=== PATIENT | female | born 1960 | race American Indian/Alaskan Native ===

== ENCOUNTER 2019-02-02 19:35 | Emergency (ER) | payer MEDICARE, BC ==
--- NOTE | 2019-02-02 19:53 | Emergency Department Report ---
Blank Doc - Documentation Documentation: 58-year-old female that presents with right upper abdominal pain with radiation to right flank. This initial assessment/diagnostic orders/clinical plan/treatment(s) is/are subject to change based on patient's health status, clinical progression and re- assessment by fellow clinical providers in the ED. Further treatment and workup at subsequent clinical providers discretion. Patient/guardians urged not to elope from the ED as their condition may be serious if not clinically assessed and managed. Initial orders include: 1- Patient sent to [facility] for further evaluation and treatment 2- labs 3- UA
[2019-02-02 20:18] LABS: Hematocrit 40.6 % (30.3-42.9); Hemoglobin 13.5 gm/dl (10.1-14.3); Mean Corpuscular HGB Conc 33 % (30-34); Mean Corpuscular Volume 102 fl (79-97); Platelet Count 290 K/mm3 (140-440); Red Blood Count 3.98 M/mm3 (3.65-5.03)
[2019-02-02 20:38] LABS: Bilirubin,Urine NEG (Negative); Blood,Urine SM (Negative); Color,Urine Yellow (Yellow); Mucus,Urine FEW /HPF; Protein,Urine <15 mg/dL mg/dL (Negative); Urobilinogen,Urine < 2.0 mg/dL (<2.0)
[2019-02-02 20:39] LABS: Alanine Aminotransferase 17 units/L (7-56); Albumin 3.6 g/dL (3.9-5); BUN/Creatinine Ratio 15; Blood Urea Nitrogen 15 mg/dL (7-17); Calcium 9.2 mg/dL (8.4-10.2); Hemolysis Index 7
[2019-02-02 21:33] LABS: Bacteria,Urine 1+ /HPF (Negative)
[2019-02-02 21:50] LABS: Basophils % (Manual) 0 % (0.0-1.8); Eosinophils % (Manual) 0 % (0.0-4.3)
[2019-02-02 21:51] LABS: Total Cells Counted 100
[2019-02-02 21:56] LABS: Macrocytosis Few; Stomatocytes Few
[2019-02-02 21:57] LABS: Platelet Estimate Consistent w Auto
--- NOTE | 2019-02-02 23:46 | Emergency Department Report ---
ED General Adult HPI - General Chief complaint: Chest Pain Stated complaint: PAIN UNDER RIGHT BREAST, SIDE, BACK PAIN Time Seen by Provider: 02/02/19 19:52 Source: patient Mode of arrival: Ambulatory Limitations: No Limitations - History of Present Illness Initial comments: 58-year-old female presents to ED complaining of right side underneath her breast. Patient states that pain is under her right breast soreness . Patient states pain is gone on for a couple of days. He has a pain as it sore/throbbing type pain. Patient states she has a history of CMT. [facility] sees [facility] on . Patient also says she has a neurologist and does not have an appointment with them until next week. Patient states she is having in10/08 sensitive pain 10. She denies any trauma, shortness of breath, dizziness, headache, blurred vision or any other symptoms - Related Data Previous Rx's Medication Instructions Recorded Last Taken Type Cyclobenzaprine [Flexeril] 10 mg PO QHS #20 tablet 02/03/19 Unknown Rx HYDROcodone/APAP 5-325 [[place] 1 each PO Q6H #10 tablet 02/03/19 Unknown Rx 5-325 mg TAB] Allergies Allergy/AdvReac Type Severity Reaction Status Date / Time iodine Allergy Hives Verified 02/02/19 19:55 ED Review of Systems ROS: Stated complaint: PAIN UNDER RIGHT BREAST, SIDE, BACK PAIN Other details as noted in HPI Comment: All other systems reviewed and negative ED Past Medical Hx - Past Medical History Previous Medical History?: Yes Hx Hypertension: Yes Additional medical history: CMT - Surgical History Past Surgical History?: Yes Hx Cholecystectomy: Yes - Social History Smoking Status: Current Every Day Smoker Substance Use Type: None - Medications Home Medications: Home Medications Medication Instructions Recorded Confirmed Last Taken Type Cyclobenzaprine [Flexeril] 10 mg PO QHS #20 tablet 02/03/19 Unknown Rx HYDROcodone/APAP 5-325 [[place] 1 each PO Q6H #10 tablet 02/03/19 Unknown Rx 5-325 mg TAB] ED Physical Exam - General Limitations: No Limitations General appearance: alert, in no apparent distress - Head Head exam: Present: atraumatic, normocephalic - Eye Eye exam: Present: normal appearance - ENT ENT exam: Present: mucous membranes moist - Neck Neck exam: Present: normal inspection - Respiratory Respiratory exam: Present: normal lung sounds bilaterally. Absent: respiratory distress - Cardiovascular Cardiovascular Exam: Present: regular rate, normal rhythm. Absent: systolic murmur, diastolic murmur, rubs, gallop - GI/Abdominal GI/Abdominal exam: Present: soft, normal bowel sounds - Extremities Exam Extremities exam: Present: normal inspection - Back Exam Back exam: Present: normal inspection - Neurological Exam Neurological exam: Present: alert, oriented X3 - Psychiatric Psychiatric exam: Present: normal affect, normal mood - Skin Skin exam: Present: warm, dry, intact, normal color. Absent: rash ED Course Vital Signs 02/02/19 19:48 Temperature 98.4 F Pulse Rate 60 Respiratory 20 Rate Blood Pressure 192/82 O2 Sat by Pulse 97 Oximetry ED Medical Decision Making - Lab Data Result diagrams: 02/02/19 19:56 02/02/19 19:56 Laboratory Last Values WBC 17.6 K/mm3 (4.5-11.0) H 02/02/19 19:56 RBC 3.98 M/mm3 (3.65-5.03) 02/02/19 19:56 Hgb 13.5 gm/dl (10.1-14.3) 02/02/19 19:56 Hct 40.6 % (30.3-42.9) 02/02/19 19:56 MCV 102 fl (79-97) H 02/02/19 19:56 MCH 34 pg (28-32) H 02/02/19 19:56 MCHC 33 % (30-34) 02/02/19 19:56 RDW 15.0 % (13.2-15.2) 02/02/19 19:56 Plt Count 290 K/mm3 (140-440) 02/02/19 19:56 Lymph # Freezer Person 02/02/19 19:56 Add Manual Diff Complete 02/02/19 19:56 Total Counted 100 02/02/19 19:56 Seg Neuts % (Manual) 47.0 % (40.0-70.0) 02/02/19 19:56 Band Neutrophils % 0 % 02/02/19 19:56 Lymphocytes % (Manual) 42.0 % (13.4-35.0) H 02/02/19 19:56 Reactive Lymphs % (Man) 5.0 % 02/02/19 19:56 Monocytes % (Manual) 5.0 % (0.0-7.3) 02/02/19 19:56 Eosinophils % (Manual) 0 % (0.0-4.3) 02/02/19 19:56 Basophils % (Manual) 0 % (0.0-1.8) 02/02/19 19:56 Metamyelocytes % 1.0 % 02/02/19 19:56 Myelocytes % 0 % 02/02/19 19:56 Promyelocytes % 0 % 02/02/19 19:56 Blast Cells % 0 % 02/02/19 19:56 Nucleated RBC % Not Reportable 02/02/19 19:56 Seg Neutrophils # Man 8.3 K/mm3 (1.8-7.7) H 02/02/19 19:56 Band Neutrophils # 0.0 K/mm3 02/02/19 19:56 Lymphocytes # (Manual) 7.4 K/mm3 (1.2-5.4) H 02/02/19 19:56 Abs React Lymphs (Man) 0.9 K/mm3 02/02/19 19:56 Monocytes # (Manual) 0.9 K/mm3 (0.0-0.8) H 02/02/19 19:56 Eosinophils # (Manual) 0.0 K/mm3 (0.0-0.4) 02/02/19 19:56 Basophils # (Manual) 0.0 K/mm3 (0.0-0.1) 02/02/19 19:56 Metamyelocytes # 0.2 K/mm3 02/02/19 19:56 Myelocytes # 0.0 K/mm3 02/02/19 19:56 Promyelocytes # 0.0 K/mm3 02/02/19 19:56 Blast Cells # 0.0 K/mm3 02/02/19 19:56 Hypersegmented Neuts Not Reportable 02/02/19 19:56 Hyposegmented Neuts Not Reportable 02/02/19 19:56 Hypogranular Neuts Not Reportable 02/02/19 19:56 Smudge Cells Not Reportable 02/02/19 19:56 Toxic Granulation Not Reportable 02/02/19 19:56 Toxic Vacuolation Not Reportable 02/02/19 19:56 Dohle Bodies Not Reportable 02/02/19 19:56 Pelger-Huet Anomaly Not Reportable 02/02/19 19:56 Elvia Rods Not Reportable 02/02/19 19:56 Platelet Estimate Consistent w auto 02/02/19 19:56 Clumped Platelets Not Reportable 02/02/19 19:56 Plt Clumps, EDTA Not Reportable 02/02/19 19:56 Large Platelets Not Reportable 02/02/19 19:56 Giant Platelets Not Reportable 02/02/19 19:56 Platelet Satelliting Not Reportable 02/02/19 19:56 Plt Morphology Comment Not Reportable 02/02/19 19:56 RBC Morphology Not Reportable 02/02/19 19:56 Dimorphic RBCs Not Reportable 02/02/19 19:56 Polychromasia Rare 02/02/19 19:56 Hypochromasia Not Reportable 02/02/19 19:56 Poikilocytosis Not Reportable 02/02/19 19:56 Anisocytosis Not Reportable 02/02/19 19:56 Microcytosis Not Reportable 02/02/19 19:56 Macrocytosis Few 02/02/19 19:56 Spherocytes Not Reportable 02/02/19 19:56 Pappenheimer Bodies Not Reportable 02/02/19 19:56 Sickle Cells Not Reportable 02/02/19 19:56 Target Cells Not Reportable 02/02/19 19:56 Tear Drop Cells Not Reportable 02/02/19 19:56 Ovalocytes Not Reportable 02/02/19 19:56 Stomatocytes Few 02/02/19 19:56 Helmet Cells Not Reportable 02/02/19 19:56 [place] Bodies Not Reportable 02/02/19 19:56 [place] Rings Not Reportable 02/02/19 19:56 [place] Cells Not Reportable 02/02/19 19:56 Bite Cells Not Reportable 02/02/19 19:56 Crenated Cell Not Reportable 02/02/19 19:56 Elliptocytes Not Reportable 02/02/19 19:56 Acanthocytes (Spur) Not Reportable 02/02/19 19:56 Rouleaux Not Reportable 02/02/19 19:56 Hemoglobin C Crystals Not Reportable 02/02/19 19:56 Schistocytes Not Reportable 02/02/19 19:56 Malaria parasites Not Reportable 02/02/19 19:56 Dougie Bodies Not Reportable 02/02/19 19:56 Hem Pathologist Commnt Sent to pathology 02/02/19 19:56 Sodium 141 mmol/L (137-145) 02/02/19 19:56 Potassium 3.4 mmol/L (3.6-5.0) L 02/02/19 19:56 Chloride 108.0 mmol/L (98-107) H 02/02/19 19:56 Carbon Dioxide 24 mmol/L (22-30) 02/02/19 19:56 Anion Gap 12 mmol/L 02/02/19 19:56 BUN 15 mg/dL (7-17) 02/02/19 19:56 Creatinine 1.0 mg/dL (0.7-1.2) 02/02/19 19:56 Estimated GFR > 60 ml/min 02/02/19 19:56 BUN/Creatinine Ratio 15 % 02/02/19 19:56 Glucose 105 mg/dL (65-100) H 02/02/19 19:56 Calcium 9.2 mg/dL (8.4-10.2) 02/02/19 19:56 Total Bilirubin 0.20 mg/dL (0.1-1.2) 02/02/19 19:56 AST 12 units/L (5-40) 02/02/19 19:56 ALT 17 units/L (7-56) 02/02/19 19:56 Alkaline Phosphatase 65 units/L (35-129) 02/02/19 19:56 Total Protein 7.3 g/dL (6.3-8.2) 02/02/19 19:56 Albumin 3.6 g/dL (3.9-5) L 02/02/19 19:56 Albumin/Globulin Ratio 1.0 % 02/02/19 19:56 Lipase 13 units/L (13-60) 02/02/19 19:56 Urine Color Yellow (Yellow) 02/02/19 20:22 Urine Turbidity Slightly-cloudy (Clear) 02/02/19 20:22 Urine pH 5.0 (5.0-7.0) 02/02/19 20:22 Ur Specific [place] 1.021 (1.003-1.030) 02/02/19 20:22 Urine Protein <15 mg/dl mg/dL (Negative) 02/02/19 20:22 Urine Glucose (UA) Neg mg/dL (Negative) 02/02/19 20:22 Urine Ketones Neg mg/dL (Negative) 02/02/19 20:22 Urine Blood Sm (Negative) 02/02/19 20:22 Urine Nitrite Neg (Negative) 02/02/19 20:22 Urine Bilirubin Neg (Negative) 02/02/19 20:22 Urine Urobilinogen < 2.0 mg/dL (<2.0) 02/02/19 20:22 Ur Leukocyte Esterase Neg (Negative) 02/02/19 20:22 Urine WBC (Auto) 2.0 /HPF (0.0-6.0) 02/02/19 20:22 Urine RBC (Auto) 7.0 /HPF (0.0-6.0) 02/02/19 20:22 U Epithel Cells (Auto) 8.0 /HPF (0-13.0) 02/02/19 20:22 Urine Bacteria (Auto) 1+ /HPF (Negative) 02/02/19 20:22 Urine Mucus Few /HPF 02/02/19 20:22 - Radiology Data Radiology results: report reviewed, image reviewed Fluoro Time In Minutes: CHEST 2 VIEWS INDICATION / CLINICAL INFORMATION: cp. Chest pain COMPARISON: None available. FINDINGS: SUPPORT DEVICES: None. HEART / MEDIASTINUM: No significant abnormality. LUNGS / PLEURA: No significant pulmonary or pleural abnormality. No pneumoth orax. ADDITIONAL FINDINGS: No significant additional findings. IMPRESSION: 1. No acute findings. Signer Name: Socrates Cannon MD Signed: 02/02/2019 11:59 PM Workstation Name: [id number] - Medical Decision Making 58-year-old female presents with costochondritis/right breast pain. All lives were completed within normal limits. Patient had leukocytosis which is secondary to her chronic disorder. Patient states she had not taken her blood pressure medication today so blood pressure is elevated. Patient states she will go home and take her medication. Patient reports feeling much better after pain medication administered. She is in no acute distress at the moment. Discussed with patient follow-up with her primary care physician Critical care attestation.: If time is entered above; I have spent that time in minutes in the direct care o f this critically ill patient, excluding procedure time. ED Disposition Clinical Impression: Pain of right breast, Acute chest wall pain Disposition: DC-01 TO HOME OR SELFCARE Is pt being admited?: No Does the pt Need Aspirin: No Condition: Stable Instructions: Chest Pain (ED), Costochondritis (ED) Additional Instructions: Make sure to follow up with the primary care physician as discussed. Take all your medications as you've been prescribed. If you have any worsening symptoms or develop new symptoms please return to ED immediately. Prescriptions: Cyclobenzaprine [Flexeril] 10 mg PO QHS #20 tablet HYDROcodone/APAP 5-325 [[place] 5-325 mg TAB] 1 each PO Q6H #10 tablet Referrals: PRIMARY CAREMD [Primary Care Provider] - 3-5 Days LIZ MOREJON MD [Staff Physician] - 3-5 Days [facility] [Provider Group] - 3-5 Days Forms: Accompanied Note, Work/School Release Form(ED) Time of Disposition: 01:29
--- NOTE | 2019-02-03 00:04 | XRay Report ---
CHEST 2 VIEWS INDICATION / CLINICAL INFORMATION: cp. Chest pain COMPARISON: None available. FINDINGS: SUPPORT DEVICES: None. HEART / MEDIASTINUM: No significant abnormality. LUNGS / PLEURA: No significant pulmonary or pleural abnormality. No pneumothorax. ADDITIONAL FINDINGS: No significant additional findings. IMPRESSION: 1. No acute findings. Signer Name: Socrates Cannon MD Signed: 02/02/2019 11:59 PM Workstation Name: [id number]
[2019-02-03] MEDS ORDERED: KETOROLAC 30 MG/1 ML INJ IM ONE (00:34)
[2019-02-03] MEDS ORDERED: predniSONE 20 MG TAB PO ONE (00:34)
[2019-02-03] MEDS ORDERED: HYDROcodone/ACETAMINOPHEN 5-325 MG TAB PO ONE (01:07)
[2019-02-03 05:17] VITALS: BP 212/105
== END 2019-02-03 01:40 | disposition home or self-care (01) ==
LOC: ED 19:35
DX: N64.4 Mastodynia (principal); R07.89 Other chest pain; I10 Essential (primary) hypertension; F17.200 Nicotine dependence, unspecified, uncomplicated
CPT/HCPCS: 36415; 71046; 80053; 81001; 83690; 85007; 85025; 96372; 99284; J1885; J7512